=== PATIENT | female | born 1965 | race Caucasian/White ===

== ENCOUNTER → 2020-08-24 08:59 | Outpatient (BNVA) | payer OTHER, SELFPAY | PROVIDERS: Family Provider Nurse Practitioner Family; Visit Provider Nurse Practitioner Family | DX: E78.5 Hyperlipidemia, unspecified (principal); K21.9 Gastro-esophageal reflux disease without esophagitis; I10 Essential (primary) hypertension; Z12.39 Encounter for other screening for malignant neoplasm of breast | CPT/HCPCS: 80053; 80061; 84443; 85025 ==

== ENCOUNTER 2020-09-10 10:43 | Outpatient (CLI) | payer OTHER, SELFPAY ==
--- NOTE | 2020-09-10 11:00 | MM_ITS ---
WS: [id number] Exam: [place] [id number] Date/Time of Exam: 09/10/2020 10:47 AM Reason For Exam: Z12.39 - Encounter for other screening for malignant neoplasm of breast VIEWS: MLO and CC views both breasts. Comparison made with prior exam of 12/19/2009 and 09/02/2013. Findings: There was no sign of mass, architectural distortion or suspicious calcification in either breast. 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
== END 2020-09-10 10:44 | disposition home or self-care (01) ==
LOC: RADSHAW 10:44
PROVIDERS: PCP Nurse Practitioner Family; Visit Provider Nurse Practitioner Family
DX: Z12.31 Encounter for screening mammogram for malignant neoplasm of breast (principal)
CPT/HCPCS: 77067

== ENCOUNTER → 2021-02-18 11:45 | Outpatient (BNVA) | payer OTHER, SELFPAY | PROVIDERS: PCP Nurse Practitioner Family; Visit Provider Nurse Practitioner Family | DX: E78.5 Hyperlipidemia, unspecified (principal); K21.9 Gastro-esophageal reflux disease without esophagitis; I10 Essential (primary) hypertension | CPT/HCPCS: 80053; 80061; 84443; 85025 ==

== ENCOUNTER → 2022-07-23 09:32 | Outpatient (BNVA) | payer OTHER, SELFPAY | PROVIDERS: PCP Nurse Practitioner Family; Visit Provider Nurse Practitioner Family | DX: E78.5 Hyperlipidemia, unspecified (principal) | CPT/HCPCS: 80053; 80061; 84443; 85025 ==

== ENCOUNTER 2022-09-08 08:48 | Outpatient (CLI) | payer OTHER, SELFPAY ==
--- NOTE | 2022-09-08 09:15 | US_ITS ---
WS: [id number] RIGHT UPPER QUADRANT ULTRASOUND HISTORY: abd pain COMPARISON: 06/24/2018 Liver: 15.9 cm in length. Normal size liver and echogenicity. No bile duct dilatation or mass. Portal Vein: Normal hepatopetal flow with monophasic waveform. Gallbladder: Normally distended gallbladder with no stones or wall thickening. CBD: 0.3 cm Pancreas: Normal size and echogenicity. Right kidney: 9.3 cm in length. Normal size and echogenicity. No hydronephrosis or mass. Aorta and IVC: Unremarkable abdominal aorta and IVC. No ascites. US/US gall bladder [id number] IMPRESSION: Normal RIGHT upper quadrant ultrasound.
== END 2022-09-08 08:49 | disposition home or self-care (01) ==
LOC: RAD 08:50
PROVIDERS: PCP Nurse Practitioner Family; Visit Provider Surgery
DX: R10.13 Epigastric pain (principal)
CPT/HCPCS: 76705

== ENCOUNTER 2022-09-10 09:40 | Day surgery (SDC) | payer OTHER, SELFPAY ==
[2022-09-08 11:57] VITALS: BMI 38.2
[2022-09-10 10:18] VITALS: BP 165/93; PULSE 76; RESP 16; TEMP 36.4; O2SAT 98
[2022-09-10] MEDS: sodium chloride 0.9% 1,000 ML 30 ML IV (10:23)
--- NOTE | 2022-09-10 10:33 | P.ANESASSM_ITS ---
Pre-Anesthetic Assessment Height/Weight: Height 1.65 m Weight 104.326 kg Temp Pulse Resp BP Pulse Ox O2 Del Method 97.6 F 76 16 165/93 98 Room Air 09/10/22 10:18 09/10/22 10:18 09/10/22 10:18 09/10/22 10:18 09/10/22 10:18 09/10/22 10:18 Preop Diagnosis: GERD, Epigastric Operation Date: 09/10/22 11:00 Proposed Procedures p EGD [id number],K21.9,R10.13(Not Applicable) - Favio Zamudio DO Familial anesthetic complications: none Last intake: Intake Last Liquid Date 09/09/22 Last Liquid Time 22:30 Last Solid Date 09/09/22 Last Solid Time 16:30 Social No alcohol and No tobacco Exam alert, oriented x 3, clear to auscultation bilaterally and regular rate & rhythm Airway Submandibular: within normal limits Cervical ROM: within normal limits Mallampati: Class II Dentition: full Pulmonary None reported CV/HEM Hypertension None reported Hepatic None reported GI Gastroesophageal Reflux Disease epigastric pain. Metabolic Morbid Obesity [facility] [place] [place] [facility] None reported Neuropsych None reported Anesthetic Plan ASA status: 2 Anesthesia: MAC Medications/Allergies Home Medications Medication Instructions Recorded Confirmed Last Taken Type atorvastatin 20 mg tablet 20 mg PO DAILY 90 days #90 tabs 07/23/22 09/10/22 09/09/22 Rx lisinopril 10 mg tablet 10 mg PO DAILY 90 days #90 tabs 07/23/22 09/10/22 09/09/22 Rx pantoprazole 40 mg tablet,delayed 40 mg PO BID 6 weeks #84 tabs 08/19/22 09/10/22 09/09/22 Rx release (Protonix) aspirin 81 mg tablet,delayed 81 mg PO DAILY 09/08/22 09/10/22 09/09/22 History release Allergies Allergy/AdvReac Type Severity Reaction Status Date / Time No Known Allergies Allergy Verified 09/10/22 10:21 Current Medications Generic Name Dose Route Start Last Admin Trade Name Freq PRN Reason Stop Dose Admin Sodium Chloride 1,000 mls @ 30 mls/hr 09/10/22 10:00 09/10/22 10:23 Sodium Chloride 0.9% IV 09/11/22 09:59 30 mls/hr .Q24H CYNDI Administration PFSH Anesthesia Medical History Dyslipidemia Gastroesophageal reflux disease Surgical History History of excision of mass Hx of tubal ligation Family History Mother Hyperlipidemia Hypertension Social History Smoking and tobacco status: never smoked Second hand smoke exposure: No Smoking risk assessment/counseling performed?: No Alcohol intake: never Desire information about alcohol rehabilitation?: No Counseling given: No Substance/Drug Use: never Desire information about substance/drug rehabilitation?: No Counseling given: No Adopted: No Caregiver/support person: No Lives independently: Yes Household members: spouse Housing: House Marital status: Number of children: 3 Highest education level completed: Master's Degree service: No Current occupational status: employed Data Anesthesia Cardiac Studies: No Data to Display
--- NOTE | 2022-09-10 11:24 | W.PM.OPSUD ---
Surgery/Procedure H&P Update DATE OF PROCEDURE: September 10, 2022 DATE H&P PERFORMED: 08/19/22 H&P UPDATE INFORMATION: I have reviewed H&P completed within last 30 days, I have examined patient prior to procedure and No changes to prior documentation PREOP DIAGNOSIS: GERD, Epigastric PLANNED PROCEDURE: Operation Date: 09/10/22 11:00 Proposed Procedures p EGD 29572,K21.9,R10.13(Not Applicable) - Favio Zamudio, DO
[2022-09-10 11:46] VITALS: BP 116/73; PULSE 85; RESP 22; TEMP 36.1; O2SAT 91
[2022-09-10 12:02] VITALS: BP 110/84; PULSE 64; RESP 20; O2SAT 96
--- NOTE | 2022-09-10 15:03 | ANE.PACU2 ---
Inpatient post-anesthesia follow up: Airway intact: Yes Vital signs: Temperature 97.0 F Pulse Rate 64 Respiratory Rate 20 Blood Pressure 110/84 Pulse Oximetry 96 Oxygen Delivery Me thod Room Air Oxygen Flow Rate Fraction of Inspir ed Oxygen Hydration adequate: Yes Nausea and vomiting: No Pain level: 2 Mental status: Baseline
== END 2022-09-10 12:16 | disposition home or self-care (01) ==
PROVIDERS: PCP Nurse Practitioner Family; Visit Provider Surgery
PROC: 0DJ08ZZ Inspection of Upper Intestinal Tract, Via Natural or Artificial Opening Endoscopic (ICD-10-PCS; CPT 43235; principal; 2022-09-10 11:00)
DX: K21.9 Gastro-esophageal reflux disease without esophagitis (principal); R10.13 Epigastric pain; R11.2 Nausea with vomiting, unspecified; Z79.82 Long term (current) use of aspirin
CPT/HCPCS: 43239; 88305; J2704; J7030

== ENCOUNTER 2022-09-24 11:59 | Outpatient (CLI) | payer OTHER, SELFPAY ==
[2022-09-24] MEDS: iohexol 350 mg/mL 500 mL Btl (per mL) IV (12:21)
[2022-09-24] MEDS: iohexol 350 mg/mL 500 mL Btl (per mL) PO (12:21)
--- NOTE | 2022-09-24 12:30 | CT_ITS ---
WS: [id number] CT ABDOMEN CONTRAST TECHNIQUE: Contrast enhanced CT of the abdomen with coronal and sagittal reformatted images. CLINICAL INFORMATION: Paraesophageal hernia COMPARISON: CT 2010 DLP: 426.[address] scans at [facility] use at least one of these dose optimization techniques: automated e xposure control; mA and/or kV adjustment per patient size (includes targeted exams where dose is matc hed to clinical indication); or iterative reconstruction. FINDINGS: Again seen is the large paraesophageal esophageal hiatal hernia with partial intrathoracic stomach. M ajority of the stomach body is intrathoracic. Antrum and pylorus appear intrathoracic. GE junction ap pears to be in relatively normal position. Fundus is intra-abdominal. Mild diffuse fatty infiltration liver. Normal gallbladder. Normal portal vein and splenic vein. Rakel l pancreatic parenchymal enhancement. Splenic granulomas. Calcified granulomas RIGHT lower lobe. Atel ectasis in the lung bases. Adrenal glands are normal. No hydronephrosis in either kidney. Small renal cysts. Normal caliber abdominal aorta. Small fat-containing umbilical hernia. CT/CT abdomen w con* [id number] IMPRESSION: 1. Progressed Paraesophageal hiatal hernia with partial intrathoracic stomach described above. 2. Mild diffuse fatty infiltration liver. 3. Small bilateral renal cysts.
== END 2022-09-24 12:00 | disposition home or self-care (01) ==
PROVIDERS: PCP Nurse Practitioner Family; Visit Provider Surgery
DX: K44.9 Diaphragmatic hernia without obstruction or gangrene (principal); K76.0 Fatty (change of) liver, not elsewhere classified; N28.1 Cyst of kidney, acquired
CPT/HCPCS: 74160; Q9967

== ENCOUNTER → 2023-09-21 09:51 | Outpatient (BNVA) | payer OTHER, SELFPAY | PROVIDERS: PCP Nurse Practitioner Family; Visit Provider Nurse Practitioner Family | DX: E78.5 Hyperlipidemia, unspecified (principal); I10 Essential (primary) hypertension | CPT/HCPCS: 80053; 80061; 84443; 85025 ==

== ENCOUNTER → 2024-09-28 09:20 | Outpatient (BNVA) | payer OTHER, SELFPAY | PROVIDERS: PCP Nurse Practitioner Family; Visit Provider Nurse Practitioner Family | DX: I10 Essential (primary) hypertension (principal) | CPT/HCPCS: 80053; 80061; 84443; 85025 ==

== ENCOUNTER 2024-09-30 13:54 | Outpatient (CLI) | payer OTHER, SELFPAY ==
--- NOTE | 2024-09-30 14:20 | MM_ITS ---
WS: [id number] BILATERAL 3D TOMOSYNTHESIS DIGITAL SCREENING MAMMOGRAPHY WITH CAD CLINICAL INFORMATION: Z12.39 - Encounter for other screening for malignant neop... HISTORY: Screening mammogram. No current complaints. COMPARISON: 2020 TECHNIQUE: Bilateral CC and MLO views. FINDINGS: Scattered fibroglandular densities bilaterally. No suspicious focal mass, asymmetry, calcifications, or architectural distortion. No evidence of malignancy. Vascular calcification MM/MM scr BI tomosynthesis [id number] IMPRESSION: DENSITY: There are scattered areas of fibroglandular density. BI-RADS: 2 - Benign. FOLLOW UP: 1 Year Follow-up Recommend return to annual screening mammography.
== END 2024-09-30 13:55 | disposition home or self-care (01) ==
LOC: RAD 13:56
PROVIDERS: PCP Nurse Practitioner Family; Visit Provider Nurse Practitioner Family
DX: Z12.31 Encounter for screening mammogram for malignant neoplasm of breast (principal); R92.323 Mammographic fibroglandular density, bilateral breasts; R92.1 Mammographic calcification found on diagnostic imaging of breast
CPT/HCPCS: 77063; 77067